=== PATIENT | male | born 1975 | race Caucasian/White ===

== ENCOUNTER 2017-06-18 13:26 | Day surgery (SDC) | payer BC ==
[2017-06-17 14:44] VITALS: BMI 33.5
[2017-06-18] MEDS ORDERED: MIDAZOLAM HCL 2 MG/2 ML SINGLE DOSE VIAL ONE (16:10)
[2017-06-18] MEDS ORDERED: SUCCINYLCHOLINE CHLORIDE 200 MG/10 ML VIAL ONE (16:26)
[2017-06-18] MEDS ORDERED: PROPOFOL 20 ML ONE ×3 (16:27)
[2017-06-18] MEDS ORDERED: ONDANSETRON 4 MG/2 ML VIAL ONE ×3 (16:33→18:18)
[2017-06-18] MEDS ORDERED: DEXAMETHASONE SOD PHOSPHATE 4 MG/1 ML VIAL ONE ×3 (16:33→18:18)
[2017-06-18] MEDS ORDERED: ceFAZolin SODIUM 1 GM VIAL ONE (16:38)
[2017-06-18] MEDS ORDERED: BUPIVACAINE HCL/PF 0.25% (2.5MG/ML) 10 ML VIAL IJ ONE (16:43)
[2017-06-18] MEDS ORDERED: LIDOCAINE HCL 1%, 10 MG/ML (20ML VIAL) INF ONE (16:43)
[2017-06-18] MEDS ORDERED: BUPIVACAINE HCL/PF 2.5 MG/ML - 30 ML VIAL IJ ONE (17:02)
[2017-06-18] MEDS ORDERED: oxyCODONE HCL 5 MG TABLET PO PRN ×2 (18:37)
[2017-06-18] MEDS ORDERED: ONDANSETRON 4 MG/2 ML VIAL IVPUSH PRN (18:37)
[2017-06-18 18:45] VITALS: PULSE 75
[2017-06-18] MEDS ORDERED: LACTATED RINGERS SOLUTION 1,000 ML IV SCH (18:45)
[2017-06-18 19:56] VITALS: BP 111/64; TEMP 98.1
--- NOTE | 2017-06-19 09:24 | OP ---
DATE OF OPERATION: 06/18/2017 PREOPERATIVE DIAGNOSIS: Left ring finger proximal phalanx intraarticular fracture at metacarpophalangeal joint. POSTOPERATIVE DIAGNOSIS: Left ring finger proximal phalanx intraarticular fracture at metacarpophalangeal joint. OPERATIVE PROCEDURE: Operative treatment of left ring finger proximal phalanx fracture at the metacarpophalangeal joint with intraarticular extension with internal fixation. SURGEON: Lia Leblanc MD CHIEF ENGINEER DRILLING AND RECOVERY: OSMANY Villarreal ANESTHESIA: General. COMPLICATIONS: None. ESTIMATED BLOOD LOSS: Minimal. INDICATION FOR PROCEDURE: The patient is a 41-year-old male with the above finding, indicated for operative treatment. Risks, benefits, and alternatives were discussed with the patient at length. Proper informed consent was obtained. DESCRIPTION OF PROCEDURE: After proper identification of the patient, correct operative site, patient was brought to the operating room and supine on the operating table with all prominences well padded. General anesthesia was provided by the anesthesiologist. The left upper extremity was prepped and draped in the usual sterile fashion. Under live fluoroscopy the fracture was manipulated, and I was able to get the length out on the fracture; however, significant displacement continued to be present intraarticularly in the AP direction. Therefore, a percutaneous clamp was used to close this gap into an acceptable position, and then K-wires were placed from dorsal to volar direction, obtaining secure purchase and secure fixation of the fracture and joint. Radiographs were taken in multiple planes to confirm proper placement of hardware and reduction of fracture. Pins were cut short and bent outside of the skin. Sterile dressings were applied. Splint was placed. Patient was awakened from anesthesia and brought to recovery room in stable condition. Kervin Pena, the assistant child care teacher, was integral throughout the procedure. Procedure could not have been performed without a skilled operative assistant child care teacher. LIA LEBLANC M.D. [id number]
== END 2017-06-18 20:02 | disposition home or self-care (01) ==
LOC: FASU 13:26
PROVIDERS: ATTEND Orthopaedic Surgery Hand Surgery
PROC: 0PSV04Z Reposition Left Finger Phalanx with Internal Fixation Device, Open Approach (ICD-10-PCS; principal; 2017-06-18 16:23)
DX: S62.615A Displaced fracture of proximal phalanx of left ring finger, initial encounter for closed fracture (principal); X58.XXXA Exposure to other specified factors, initial encounter; Y93.9 Activity, unspecified; Y92.9 Unspecified place or not applicable; Y99.9 Unspecified external cause status
CPT/HCPCS: 73140-TC-LT; 94760

== ENCOUNTER 2018-02-19 11:36 | Emergency (ER) | payer BC, OTHER ==
[2018-02-19 11:40] VITALS: BP 122/90; PULSE 74; TEMP 98.4; BMI 33.6
--- NOTE | 2018-02-19 12:39 | PDOC ---
History of Present Illness - General Chief Complaint: Eye Problem Stated Complaint: FB IN LEFT EYE Time Seen by Provider: 02/19/18 11:38 - History of Present Illness Initial Comments: 02/19/18 12:34 42 M presenting with foreign body sensation in L eye. 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 He denies being near any high velocity projectiles. States that he washed his eye out and still felt something in there so he came to the ER. Denies blurred vision. Past History - Past Medical History Allergies/Adverse Reactions: Allergies Allergy/AdvReac Type Severity Reaction Status Date / Time pollen extracts Allergy Verified 02/19/18 11:37 seasonal Allergy Uncoded 02/19/18 11:37 Home Medications: Ambulatory Orders Erythromycin 0.5% Eye Ointment [Erythromycin 0.5% Eye Ointment -] 1 applic OS TID 3 Days #1 tube 02/19/18 Anemia: No Asthma: No Cancer: No Cardiac Disorders: No CVA: No COPD: No CHF: No Dementia: No Diabetes: No GI Disorders: No Disorders: No HTN: No Hypercholesterolemia: Yes Liver Disease: No Seizures: No Thyroid Disease: No - Surgical History Abdominal Surgery: No Appendectomy: No Cardiac Surgery: No Cholecystectomy: No Lung Surgery: No Neurologic Surgery: No Orthopedic Surgery: Yes (ORIF Left Scaphoid) - Suicide/Smoking/Psychosocial Hx Smoking History: Former smoker Have you smoked in the past 12 months: No If you are a former smoker, when did you quit?: 4 yrs ago Information on smoking cessation initiated: No Hx Alcohol Use: No Drug/Substance Use Hx: No Substance Use Type: None Hx Substance Use Treatment: No Review of Systems - Review of Systems Comments:: 02/19/18 12:36 "GENERAL/CONSTITUTIONAL: No fever or chills. No weakness. HEAD, EYES, EARS, NOSE AND THROAT: +FB sensation in L eye, No change in vision. No ear pain or discharge. No sore throat. CARDIOVASCULAR: No chest pain or shortness of breath. RESPIRATORY: No cough, wheezing, or hemoptysis. GASTROINTESTINAL: No nausea, vomiting, diarrhea or constipation. GENITOURINARY: No dysuria, frequency, or change in urination. MUSCULOSKELETAL: No joint or muscle swelling or pain. No neck or back pain. SKIN: No rash NEUROLOGIC: No headache, vertigo, loss of consciousness, or change in strength/ sensation. ENDOCRINE: No increased thirst. No abnormal weight change. HEMATOLOGIC/LYMPHATIC: No anemia, easy bleeding, or history of blood clots. ALLERGIC/IMMUNOLOGIC: No hives or skin allergy. " *Physical Exam - Vital Signs Last Vital Signs Temp Pulse Resp BP Pulse Ox 98.4 F 74 16 122/90 98 02/19/18 11:36 02/19/18 11:36 02/19/18 11:36 02/19/18 11:36 02/19/18 11:36 - Physical Exam Comments: 02/19/18 12:36 "GENERAL: Awake, alert, and fully oriented, in no acute distress. HEAD: No signs of trauma EYES: +L eye with mild conjunctival injection, R eye wnl, PERRLA, EOMI, sclera anicteric ENT: Auricles normal inspection, hearing grossly normal, nares patent, oropharynx clear without exudates. Moist mucosa NECK: Nontender, no stepoffs, Normal ROM, supple, no lymphadenopathy, JVD, or masses LUNGS: Breath sounds equal, clear to auscultation bilaterally. No wheezes, and no crackles HEART: Regular rate and rhythm, normal S1 and S2, no murmurs, rubs or gallops ABDOMEN: Soft, nontender, normoactive bowel sounds. No guarding, no rebound. No masses EXTREMITIES: Normal range of motion, no edema. No clubbing or cyanosis. No cords, erythema, or tenderness NEUROLOGICAL: Cranial nerves II through XII intact. 5/5 strength and sensation in all extremities, Normal speech, normal gait, normal cerebellar function SKIN: Warm, Dry, normal turgor, no rashes or lesions noted. " Medical Decision Making - Medical Decision Making 02/19/18 12:36 42 M with foreign body sensation in L eye after dirt fell in it. - During my exam, I everted L eyelid and brushed cotton swab across lid. No FB was visualized, but pt subsequently reported relief of FB sensation. - Fluorescein stain reveals no richard's sign - Small corneal abrasion visualized - DC with erythromycin ointment Pt is well appearing, with normal vitals. Clinically stable for DC at this time. I discussed the physical exam findings, ancillary test results and final diagnoses with the patient. I answered all of the patient's questions. The patient was satisfied with the care received and felt comfortable with the discharge plan and treatment plan. The patient agrees to follow up with the primary care physician within 24-72 hours. *DC/Admit/Observation/Transfer Diagnosis at time of Disposition: Corneal abrasion - Discharge Dispostion Disposition: HOME Condition at time of disposition: Stable - Prescriptions Prescriptions: Erythromycin 0.5% Eye Ointment [Erythromycin 0.5% Eye Ointment -] 1 applic OS TID 3 Days #1 tube - Referrals Referrals: Nadya Do MD [Staff Physician] - - Patient Instructions Printed Discharge Instructions: DI for Corneal Abrasion Additional Instructions: You have a small abrasion on your cornea (surface of your eye). Apply the antibiotic ointment four times a day for 3 days. If you continue to have pain, redness, or any other concerning symptoms, return to the ER immediately. Otherwise, follow up with an stoker mechanic within 1 week. Call the number provided to make an appointment. - Post Discharge Activity - Attestations Physician Attestion: 02/19/18 12:42 I, Dr. Capo Livingston MD, attest that this document has been prepared under my direction and personally reviewed by me in its entirety. I further attest, that it accurately reflects all work, treatment, procedures and medical decision -making performed by me.
== END 2018-02-19 12:56 | disposition home or self-care (01) ==
LOC: FER 11:36
DX: S05.02XA Injury of conjunctiva and corneal abrasion without foreign body, left eye, initial encounter (principal); X58.XXXA Exposure to other specified factors, initial encounter; Y93.89 Activity, other specified; Y92.89 Other specified places as the place of occurrence of the external cause; Y99.0 Civilian activity done for income or pay; E78.00 Pure hypercholesterolemia, unspecified; Z87.891 Personal history of nicotine dependence
CPT/HCPCS: 99282-25

== ENCOUNTER 2021-11-06 14:53 | Emergency (ER) | payer OTHER, BC ==
[2021-11-06 15:14] VITALS: BP 114/79; PULSE 102; TEMP 97.8
== END 2021-11-06 16:55 | disposition home or self-care (01) ==
LOC: JER 14:53 → JERFT 14:53
DX: S39.012A Strain of muscle, fascia and tendon of lower back, initial encounter (principal); S66.911A Strain of unspecified muscle, fascia and tendon at wrist and hand level, right hand, initial encounter; V43.52XA Car driver injured in collision with other type car in traffic accident, initial encounter
CPT/HCPCS: 99281-25

== ENCOUNTER 2023-10-15 07:16 | Emergency (ER) | payer BC, OTHER ==
[2023-10-15 07:24] VITALS: BMI 32.2
[2023-10-15] MEDS ORDERED: KETOROLAC TROMETHAMINE 30 MG/1 ML VIAL IM ONE (07:39)
[2023-10-15] MEDS ORDERED: KETOROLAC TROMETHAMINE 30 MG/1 ML VIAL ONE (07:40)
[2023-10-15] MEDS ORDERED: ONDANSETRON 4 MG/2 ML VIAL IVPB ONE (07:53)
[2023-10-15] MEDS ORDERED: SODIUM CHLORIDE 1,000 ML IV ONE (07:53)
[2023-10-15] MEDS ORDERED: ONDANSETRON 4 MG/2 ML VIAL ONE (07:58)
[2023-10-15 08:04] LABS: BASO % 0.7 % (0-2.0); EOS % 3.3 % (0-4.5); HEMATOCRIT 48.7 % (35.4-49); LYMPH % 23.1 % (8-40); MCH 31.8 pg (25.7-33.7); MCHC 34.8 g/dl (32.0-35.9); MEAN CELL VOLUME 91.4 fl (80-96); MEAN PLT VOLUME 9.9 fl (7.5-11.1); MONO % 8.6 % (3.8-10.2); NEUT % 64.3 % (42.8-82.8); PLATELET COUNT 226 10^3/uL (134-434); RBC 5.32 M/mm3 (4.00-5.60); RDW 13.1 % (11.9-15.9); WHITE BLOOD COUNT 7.8 K/mm3 (4.0-10.0)
[2023-10-15 08:19] LABS: POTASSIUM 4.1 mmol/L (3.5-5.1)
[2023-10-15 08:21] LABS: CALCIUM 9.1 mg/dL (8.5-10.1)
[2023-10-15 08:22] LABS: BLOOD UREA NITROGEN 14.3 mg/dL (7-18)
[2023-10-15 08:25] LABS: CREATININE 1.3 mg/dL (0.55-1.3)
[2023-10-15 08:26] LABS: BILIRUBIN,TOTAL 0.5 mg/dL (0.2-1); TOT PROT 7.4 g/dl (6.4-8.2)
[2023-10-15 08:57] LABS: EPI CELLS 9 /uL (0-25.1); HYALINE CASTS 2 /uL (0-3.1); PH,URINE 5.5 (5.0-8.0); URINE APPEARANCE CLEAR; URINE BACTERIA 41 /uL (0-1359); URINE BILIRUBIN NEGATIVE (NEGATIVE); URINE COLOR YELLOW; URINE GLUCOSE (UA) NEGATIVE (NEGATIVE); URINE KETONE NEGATIVE (NEGATIVE); URINE LEUK ESTERASE NEGATIVE (NEGATIVE); URINE NITRITE NEGATIVE (NEGATIVE); URINE PROTEIN TRACE (NEGATIVE); URINE RBC 1165 /uL (0-23.9); URINE UROBILINOGEN 0.2 mg/dL (0.2-1.0); URINE WBC 14 /uL (0-25.8)
[2023-10-15] MEDS ORDERED: morphine CARPU-JECT 4 MG/1 ML DISP.SYRIN IVPUSH ONE (09:12)
[2023-10-15] MEDS ORDERED: morphine SULFATE 4 MG/ML VIAL ONE (09:41)
[2023-10-15 11:21] VITALS: BP 113/81; PULSE 87; RESP 16; TEMP 97.6
== END 2023-10-15 12:07 | disposition home or self-care (01) ==
LOC: JER 07:16
PROC: 3E033GC Introduction of Other Therapeutic Substance into Peripheral Vein, Percutaneous Approach (ICD-10-PCS; principal; 2023-10-15)
PROC: 3E0337Z Introduction of Electrolytic and Water Balance Substance into Peripheral Vein, Percutaneous Approach (ICD-10-PCS; 2023-10-15)
PROC: 3E023GC Introduction of Other Therapeutic Substance into Muscle, Percutaneous Approach (ICD-10-PCS; 2023-10-15)
DX: M54.50 Low back pain, unspecified (principal); R10.9 Unspecified abdominal pain; R11.0 Nausea; N20.0 Calculus of kidney
CPT/HCPCS: 36415; 74176-TC; 80053; 81003; 85025; 99284-25

== ENCOUNTER 2023-10-15 17:55 | Inpatient (IN) | payer BC, OTHER ==
[2023-10-15] MEDS ORDERED: morphine CARPU-JECT 4 MG/1 ML DISP.SYRIN IVPUSH ONE (18:40)
[2023-10-15] MEDS ORDERED: morphine SULFATE 4 MG/ML VIAL ONE (19:08)
[2023-10-15] MEDS ORDERED: ONDANSETRON 4 MG/2 ML VIAL IVPUSH PRN (20:54)
[2023-10-15] MEDS ORDERED: LACTATED RINGERS SOLUTION 1,000 ML IV SCH ×2 (21:00→23:53)
[2023-10-15] MEDS ORDERED: ACETAMINOPHEN 325 MG TABLET (FP) ONE (21:10)
[2023-10-15] MEDS ORDERED: KETOROLAC TROMETHAMINE 15 MG/ML VIAL ONE (21:10)
[2023-10-15] MEDS: KETOROLAC TROMETHAMINE 15 MG/ML VIAL IVPUSH SCH (21:18)
[2023-10-15] MEDS: ACETAMINOPHEN 325 MG TABLET (FP) PO SCH (21:18)
[2023-10-16] MEDS: ACETAMINOPHEN 325 MG TABLET (FP) PO SCH ×2 (00:06→05:33)
[2023-10-16] MEDS ORDERED: KETOROLAC TROMETHAMINE 15 MG/ML VIAL ONE (03:01)
[2023-10-16] MEDS: KETOROLAC TROMETHAMINE 15 MG/ML VIAL IVPUSH SCH (03:05)
[2023-10-16] MEDS ORDERED: ONDANSETRON 4 MG/2 ML VIAL ONE ×2 (03:59→08:45)
[2023-10-16 05:57] VITALS: BMI 36.7
[2023-10-16] MEDS ORDERED: ONDANSETRON 4 MG/2 ML VIAL IVPUSH PRN (07:46)
[2023-10-16] MEDS ORDERED: PROMETHAZINE HCL 25 MG/1 ML VIAL IVPB PRN ×2 (07:46→09:21)
[2023-10-16] MEDS ORDERED: LACTATED RINGERS SOLUTION 1,000 ML IV SCH ×2 (08:00→09:21)
[2023-10-16] MEDS ORDERED: MIDAZOLAM HCL 2 MG/2 ML SINGLE DOSE VIAL ONE (08:21)
[2023-10-16] MEDS ORDERED: LIDOCAINE HCL/PF 2% SDV 5ML VIAL ONE (08:21)
[2023-10-16] MEDS ORDERED: TAMSULOSIN HCL 0.4 MG CAP PO SCH (08:30)
[2023-10-16] MEDS ORDERED: ceFAZolin SODIUM 1 GM VIAL ONE (08:37)
[2023-10-16] MEDS ORDERED: SODIUM CHLORIDE 0.9% P/F 10 ML VIAL IJ ONE (08:37)
[2023-10-16] MEDS ORDERED: ceFAZolin SODIUM 1 GM VIAL IVPB ONE (08:39)
[2023-10-16] MEDS ORDERED: DEXAMETHASONE SOD PHOSPHATE 4 MG/1 ML VIAL ONE (08:45)
[2023-10-16] MEDS ORDERED: KETOROLAC TROMETHAMINE 30 MG/1 ML VIAL ONE (08:45)
[2023-10-16] MEDS ORDERED: ACETAMINOPHEN 325 MG TABLET (FP) PO SCH (12:00)
[2023-10-16 12:31] LABS: INR 1.03 (0.83-1.09); PROTHROMBIN TIME (PATIENT) 11.9 SEC (9.7-13.0)
[2023-10-16 12:34] LABS: ACTIVATED PTT 28.2 SECONDS (25.2-36.5)
[2023-10-16 12:43] LABS: BASO % 0.1 % (0-2.0); EOS % 0.4 % (0-4.5); HEMATOCRIT 44.7 % (35.4-49); HEMOGLOBIN 15.4 GM/dL (11.7-16.9); LYMPH % 7.9 % (8-40); MCH 31.1 pg (25.7-33.7); MCHC 34.6 g/dl (32.0-35.9); MEAN PLT VOLUME 10.3 fl (7.5-11.1); MONO % 2.9 % (3.8-10.2); NEUT % 88.7 % (42.8-82.8); PLATELET COUNT 215 10^3/uL (134-434); RBC 4.96 M/mm3 (4.00-5.60); RDW 12.8 % (11.9-15.9); WHITE BLOOD COUNT 13.8 K/mm3 (4.0-10.0)
[2023-10-16 12:53] LABS: POTASSIUM 4.2 mmol/L (3.5-5.1)
[2023-10-16 12:58] LABS: CALCIUM 9.4 mg/dL (8.5-10.1)
[2023-10-16 12:59] LABS: MAGNESIUM 2.3 mg/dL (1.8-2.4)
[2023-10-16 13:00] LABS: ALBUMIN 3.9 g/dl (3.4-5.0); BLOOD UREA NITROGEN 8.3 mg/dL (7-18); CREATININE 1.1 mg/dL (0.55-1.3)
[2023-10-16 13:02] LABS: TOT PROT 6.8 g/dl (6.4-8.2)
[2023-10-16 13:03] LABS: PHOSPHOROUS 2.8 mg/dL (2.5-4.9)
[2023-10-16 13:05] LABS: BILIRUBIN,TOTAL 0.6 mg/dL (0.2-1)
[2023-10-16 14:31] VITALS: BP 114/83; PULSE 83; RESP 18; TEMP 98.4
[2023-10-17] MEDS ORDERED: TAMSULOSIN HCL 0.4 MG CAP PO SCH (08:30)
== END 2023-10-16 16:44 | disposition home or self-care (01) | DRG 661 ==
LOC: JER 17:55 → JERBED 18:40 → J5S 10-16 04:46
PROVIDERS: ADMIT Student in an Organized Health Care Education/Training Program; ATTEND Internal Medicine
PROC: 0TC78ZZ Extirpation of Matter from Left Ureter, Via Natural or Artificial Opening Endoscopic (ICD-10-PCS; principal; 2023-10-16 08:30)
PROC: 0T778DZ Dilation of Left Ureter with Intraluminal Device, Via Natural or Artificial Opening Endoscopic (ICD-10-PCS; 2023-10-16 08:30)
PROC: BT1FYZZ Fluoroscopy of Left Kidney, Ureter and Bladder using Other Contrast (ICD-10-PCS; 2023-10-16 08:30)
DX: N13.2 Hydronephrosis with renal and ureteral calculous obstruction (principal); E66.9 Obesity, unspecified; Z68.36 Body mass index [BMI] 36.0-36.9, adult
CPT/HCPCS: 36415; 76000-TC-FY; 80053; 80061; 82360; 83036; 83735; 84100; 85025; 85610; 85730; 86850; 86900; 86901; 88300-TC; 94760; 99285-25; C2617